=== PATIENT | female | born 1985 | race Hispanic/Latino ===

== ENCOUNTER 2025-05-19 18:20 | Emergency (ER) | payer OTHER ==
--- OUTSIDE RECORDS SUMMARY | 2025-05-19 18:26 | XMS REPORT | Continuity of Care Document ---
Author Name Unknown Address [address] [facility] [place] [address] [facility] Address [address] [facility] [address] [place] [address] Care Team Providers Care Skiver Machine Name Role Phone None, None Primary Care Physician Pushpa Rodriguez Attending Clinician UnavailDeborah Willoughby Attending Clinician Unavailable Anish Zhao Attending Clinician Unavailable Genetic Counselor, Center Attending Clinic janneth Unavailable Jayleen Markham RN Attending Clinician Unavailab Jessica Howell Attending Clinician Unavail able Lab, Adc Fam Pob I Attending Clinician Unavailab Chadd Du Attending Clinician CHADD PABLO Attending Clinician Unavailable Pushpa Rodriguez Admitting Clinician Unavailnoy reich Physician, No Primary or Family Admitting Clinic janneth Unavailable Payers Payer Name Policy Type Policy Number Effective Date Expirati on Date Source OPEN ACCESS [employer] EPO [id number] 2021 00:00:00 Problems Condition Name Condition Details Condition Category Status Onset Date Resolution Date Last Treatment Date Treating Clinician Comments Source Seasonal allergic rhinitis Seasonal allergic rhinitis Problem Active [facility] Abnormal heart rhythm Abnormal heart rhythm Problem Active [facility] Sciatica, left side Sciatica, left side Problem Active [facility] Anxiety Anxiety Problem Active [facility] Hypertensi on Hypertensi on Problem Active [facility] Swelling Swelling Problem Active [facility] Sinus problem Sinus problem Problem Active [facility] Cough Cough Diagnosis Active [facility] Sore throat Sore throat Diagnosis Active [facility] Allergies, Adverse Reactions, Alerts Allergy Name Allergy Type Status Severity Reaction(s) Onset Date Inactive Date Treating Clinician Comments Source No Known Allergie s DA Active U 2022-09 0 00:00: 00 [facility] No Known Allergie s DA Active U 12-28 00:00: 00 [facility] NO KNOWN ALLERGIE S Drug Class Active [facility] Social History Social Habit Start Date Stop Date Quantity Comments Source ASSERTION 2022-11-24 00:00:00 [facility] Exposure to SARS-CoV-2 (event) 2023-01-29 00:00:00 2023-02-08 10:43:00 Not sure [facility] Alcohol Comment 2023-02-03 00:00:00 2023-02-03 00:00:00 Socially before [facility] Tobacco use and exposure 2023-02-03 00:00:00 2023-02-03 00:00:00 Smokeless tobacco non-user [facility] Alcohol intake 2023-02-03 00:00:00 2023-02-03 00:00:00 Ex-drinker (finding) [facility] Sex Assigned At 1985 00:00:00 1985 00:00:00 [facility] Smoking Status Start Date Stop Date Source Unknown if ever smoked [facility] Never smoked tobacco [facility] th Medications Ordered Medication Name Filled Medication Name Start Date Stop Date Current Medication? Ordering Clinician Indication Dosage Frequency Signature (SIG) Comments Components Source Vit-Fe Fumarate-FA ( PO) 02-03 13:32: 52 Yes Take by mouth. [facility] NuvaRing NuvaRing Yes Angela Sevilla 1 ring [facility] Medrol Medrol Yes Angela Sevilla as directed with food [facility] Etonogestre l-Ethinyl Estradiol Etonogestre l-Ethinyl Estradiol Yes Angela Sevilla not defined [facility] Sertraline HCl Sertraline HCl Yes Angela Sevilla 1.5 tablets [facility] Fluconazole Fluconazole Yes Angela Sevilla not defined [facility] Amoxicillin Amoxicillin Yes Angela Sevilla not defined [facility] PredniSONE PredniSONE Yes Angela Sevilla not defined [facility] Vital Signs Vital Name Observation Time Observation Value Comments S ource Body height 2023-02-03 18:13:00 [facility] Body weight 2023-02-03 18:13:00 [facility].04 [facility] BMI 2023-02-03 18:13:00 27.44 kg/m2 [facility] Procedures Procedure Date / Time Performed Performing Clinicia n Source [id number] 2023-07-14 00:00:00 [facility] [id number] 2023-07-14 00:00:00 [facility]07 [facility] Encounters Start Date/Time End Date/Time Encounter Type Admission Type Attending Clinicians Care Facility Care Department Encounter ID Source 2023-07-28 12:00:00 Inpatient Pushpa Anaya [facility] OBOP [id number] [facility] 2023-04-26 07:26:07 Outpatient [facility] [id number] [facility] 2023-03-24 12:02:57 Outpatient [facility] [id number] [facility] 2023-02-09 09:50:31 Outpatient [facility] [id number] [facility] 2023-02-08 10:40:34 Outpatient [facility] [id number] [facility] 2023-02-05 12:24:40 Outpatient [facility] [id number] [facility] 2023-02-03 11:03:54 Outpatient [facility] [id number] [facility] 2023-02-02 17:00:52 Outpatient [facility] [id number] [facility] 2021-10-22 11:16:45 [facility]patient [facility] [id number] [facility] 2023-07-15 09:30:00 2023-07-27 00:00:00 Outpatient Pushpa Anaya [facility] [id number] [facility] 2023-07-22 13:00:00 2023-07-22 13:00:00 Outpatient [facility] [id number] [facility] 2023-07-14 02:37:00 2023-07-18 20:09:00 Inpatient Pushpa Cabrera [facility] [id number] 50 [facility] 2023-07-15 13:00:00 2023-07-15 13:00:00 Outpatient [facility] [id number] [facility] 2023-07-08 13:00:00 2023-07-08 13:46:36 Outpatient [facility] [id number] [facility] 2023-06-30 10:45:00 2023-06-30 12:02:46 Outpatient [facility] [id number] [facility] 2023-06-08 21:17:00 2023-06-09 00:35:00 Emergency EM Anish Zhao [facility] ELIF [id number] 82 [facility] 2023-06-02 11:30:00 2023-06-02 11:57:49 Outpatient [facility] [id number] [facility] 2023-05-05 14:30:00 2023-05-05 14:30:00 Outpatient [facility] [id number] [facility] 2023-03-31 15:00:00 2023-03-31 16:07:04 Outpatient [facility] [id number] [facility] 2023-03-31 13:00:00 2023-03-31 15:23:44 Outpatient [facility] [id number] [facility] 2023-03-09 10:30:00 2023-03-09 10:30:00 Outpatient [facility] [id number] [facility] 2023-02-09 11:00:00 2023-02-09 11:56:40 Education Genetic Counselor, [facility] [address] [id number] [facility] 2023-02-09 10:00:00 2023-02-09 11:56:27 Outpatient [facility] [id number] [facility] 2023-02-03 00:00:00 2023-02-03 00:00:00 Nurse Only Jayleen Markham Karold [facility] [address] [facility] [id number] [facility] 2023-02-01 11:06:00 2023-02-01 14:30:00 Emergency EM Jessica Heredia [facility] [id number] 71 [facility] 2021-05-09 17:20:00 2021-05-09 17:20:00 Outpatient [facility] [id number] [facility] 2021-05-09 11:48:18 2021-05-09 12:08:18 Laboratory Only Lab, Adc Fam Pob Chadd Morel [id number] [facility] 2021-05-09 11:40:00 2021-05-09 11:40:00 Outpatient CHADD WARD [facility] [id number] [facility] 2019-12-28 15:20:00 2019-12-28 15:20:00 Outpatient [facility] [id number] [facility] 2019-12-28 14:03:00 2019-12-28 14:03:00 [facility]patient [facility] [id number] [facility] 2018-02-24 09:15:00 2018-02-24 09:15:00 Outpatient [facility] [id number] [facility] Results Test Description Test Time Test Comments Results Result Co mments Source CAPILLARY BLOOD [id number] 11:42:00* Test Item Value Reference Range Interpretation Comme nts CAPILLARY BLOOD GAS PH (test code = PHC) 7.349 7.35-7.45 L CAPILLARY BLOOD GAS PCO2 (te st code = PCO2C) 36.0 mmHg CAPILLARY BLOOD GAS PO2 (ryan t code = PO2C) 23.8 mmHg CBG HCO3 (test code = HCO3C) 19.4 meq/L CBG BASE EXCESS (test code = BEC) -5.5 CAPILLARY BLOOD GAS TYPE (te st code = TYPEC) CBLA CAPILLARY BLOOD GAS FIO2 (te st code = FIO2C) 21.0 % CAPILLARY BLOOD GAS DEL (ryan t code = DELC) RA CBC W/AUTO [id number] 07:00:00* Test Item Value Reference Range Interpretation Comme nts WHITE BLOOD CELL (test code = WBC) 18.6 K/mm3 6.5-12.3 H Results verified by repeat analysis RED BLOOD CELL (test code = RBC) 3.65 M/mm3 3.51-4.69 N HEMOGLOBIN (test code = HGB) 8.7 g/dL 10.1-13.8 L Results verified by repeat analysis HEMATOCRIT (test code = HCT) 27.4 % 32.5-41.8 L Results verified by repeat analysis MEAN CELL VOLUME (test code = MCV) 75.1 fL 84.6-96.6 L MEAN CELL HGB (test code = MCH) 23.8 pg 27.3-33.9 L MEAN CELL HGB CONCETRATION (test code = MCHC) 31.8 gm/dL 32.0-34.2 L RED CELL DISTRIBUTION WIDTH (test code = RDW) 22.5 % 12.2-16.3 H PLATELET COUNT (test code = PLT) 191 K/mm3 134-363 N MEAN PLATELET VOLUME (test code = MPV) 10.5 fL 9.2-12.7 N NEUTROPHIL % (test code = NT%) 74.4 % 57.9-77.3 N LYMPHOCYTE % (test code = LY%) 13.9 % 14.5-29.7 L MONOCYTE % (test code = MO%) 8.5 % 3.6-10.2 N EOSINOPHIL % (test code = EO%) 0.2 % 0.0-3.0 N BASOPHIL % (test code = BA%) 0.2 % 0.1-0.9 N NEUTROPHIL # (test code = NT#) 13.9 K/mm3 LYMPHOCYTE # (test code = LY#) 2.6 K/mm3 MONOCYTE # (test code = MO#) 1.6 K/mm3 EOSINOPHIL # (test code = EO#) 0.03 K/mm3 BASOPHIL # (test code = BA#) 0.0 K/mm3 RBC MORPHOLOGY REQUIRED (test code = RBCM) ABNORMAL NORMAL MACRO 1+MICRO 1+ANISO 1+ PLATELET MORPHOLOGY REQUIRED (test code = PLTMR) NORMAL NORMAL AG HEPATITIS B [id number] 04:30:00* Test Item Value Reference Range Interpretation Comme nts AG HEPATITIS B SURFACE (test code = HBSAG) NONREACTIVE NONREACTIVE AB HEPATITIS C [id number] 04:30:00* Test Item Value Reference Range Interpretation Comme nts AB HEPATITIS C (test code = HCVAB) NONREACTIVE NONREACTIVE SIGNAL TO CUTOFF (test code = CUTOFF) 0.11 <0.80 N AB [id number] 04:30:00* Test Item Value Reference Range Interpretation Comme nts AB TREPONEMA (test code = TREPAB) NONREACTIVE NONREACTIVE AB HIV 1 04:30:00* Test Item Value Reference Range Interpretation Comme nts AB HIV 1 2 (test code = [id number]) NONREACTIVE NONREACTIVE Done by [employer] 4th Gen HIV Ag/Ab Combo Screen CBC W/AUTO [id number] 03:53:00* Test Item Value Reference Range Interpretation Comme nts WHITE BLOOD CELL (test code = WBC) 12.6 K/mm3 6.5-12.3 H RED BLOOD CELL (test code = RBC) 5.10 M/mm3 3.51-4.69 H HEMOGLOBIN (test code = HGB) 11.8 g/dL 10.1-13.8 N HEMATOCRIT (test code = HCT) 37.2 % 32.5-41.8 N MEAN CELL VOLUME (test code = MCV) 72.9 fL 84.6-96.6 L MEAN CELL HGB (test code = MCH) 23.1 pg 27.3-33.9 L MEAN CELL HGB CONCETRATION (test code = MCHC) 31.7 gm/dL 32.0-34.2 L RED CELL DISTRIBUTION WIDTH (test code = RDW) 22.5 % 12.2-16.3 H PLATELET COUNT (test code = PLT) 215 K/mm3 134-363 N MEAN PLATELET VOLUME (test code = MPV) 10.6 fL 9.2-12.7 N NEUTROPHIL % (test code = NT%) 75.8 % 57.9-77.3 N LYMPHOCYTE % (test code = LY%) 15.3 % 14.5-29.7 N MONOCYTE % (test code = MO%) 6.1 % 3.6-10.2 N EOSINOPHIL % (test code = EO%) 0.7 % 0.0-3.0 N BASOPHIL % (test code = BA%) 0.4 % 0.1-0.9 N NEUTROPHIL # (test code = NT#) 9.6 K/mm3 LYMPHOCYTE # (test code = LY#) 1.9 K/mm3 MONOCYTE # (test code = MO#) 0.8 K/mm3 EOSINOPHIL # (test code = EO#) 0.09 K/mm3 BASOPHIL # (test code = BA#) 0.1 K/mm3 RBC MORPHOLOGY REQUIRED (test code = RBCM) ABNORMAL NORMAL MICRO 1+ANISO 1+ PLATELET MORPHOLOGY REQUIRED (test code = PLTMR) NORMAL NORMAL COMPREHENSIVE METABOLIC [id number] 03:43:00* Test Item Value Reference Range Interpretation Comme nts SODIUM (test code = NA) 138 mEq/L 135-145 N POTASSIUM (test code = K) 3.7 mEq/L 3.5-5.0 N CHLORIDE (test code = CL) 105 mEq/L 100-115 N CARBON DIOXIDE (test code = CO2) 18 mEq/L 22-31 L ANION GAP (test code = GAP) 18.80 10-20 N GLUCOSE (test code = GLU) 74 mg/dL 65-110 N BLOOD UREA NITROGEN (test code = BUN) 5 mg/dL 7-18 L CREATININE (test code = CREAT) 0.6 mg/dL 0.5-1.0 N TOTAL PROTEIN (test code = PROT) 5.9 gm/dL 6.3-8.2 L ALBUMIN (test code = ALB) 2.5 gm/dL 3.4-4.8 L CALCIUM (test code = CA) 8.4 mg/dL 8.4-10.2 N BILIRUBIN TOTAL (test code = BILT) 1.0 mg/dL 0.2-1.0 N SGOT/AST (test code = AST) 17 units/L 15-37 N SGPT/ALT (test code = ALT) 8 units/L 12-78 L ALKALINE PHOSPHATASE TOTAL (test code = ALKP) 232 units/L 46-116 H GLOMERULAR FILTRATION RATE (test code = GFR) 118 ml/min >60 N The Glomerular Filtration Rate is a calculated parameterbased on serum Creatinine, patient age and sex. GFR valuesless than 60 mL/min/1.73 square meters are indicative ofChronic Kidney Disease. Values less than 15 mL/min/1.73square meters indicate Kidney failure. The calculation forGFR is based on the CKD-EPI (202) calculation. This formulais race indifferent and is the recommended formula for GFRby the National Kidney Foundation for Adults.The GFR will not calculate if the sex is unknown or if thepatient's age is <18 years. RUPTURE OF [id number] 02:37:00* Test Item Value Reference Range Interpretation Comme nts RUPTURE OF MEMBRANES (test c ode = ROM) RUPTURED - US PRG 1ST [facility] [id number] 00:00:00 [facility] 1985 Sex: F Patient Name: WARD SUMNER Unit No: [id number] EXAMS: CPT CODE: [id number] US PRG 1ST TRI [place] ADD [id number] PROCEDURE INFORMATION: Exam: US First Trimester, Transabdominal Exam date and time: 02/01/2023 11:50 AM Age: 37 years old Clinical indication: Screening exam; Other: Vag bleed; ;Prior surgery; Surgery date: 6+ months; Surgery type: Csection; Additional info: Vb; 12 weeks gestation TECHNIQUE: Imaging protocol: Real-time transabdominal obstetrical ultrasound of the maternal pelvis and a first trimester , less than 14 weeks 0 days, with image documentation. COMPARISON: US PREG AFTER 1ST TRI 09/14/2017 8:10 AM FINDINGS: Gestation: Dichorionic diamniotic twin . Embryonic/ heart rate A: 1 70 BPM. Embryonic/ heart rate B: 174 BPM. Placenta: Moderat e Small subchorionic bleed. Amniotic fluid: Amniotic fluid is normal for gestational age. BIOMETRY:Gestational age (AUA) A: Estimated gestational age is 12 weeks and 6 days, by CRL measurments. Gestational age (AUA) B: Estimated gestational age is 12 weeks and 4 days, by CRL measurments. MATERNAL:Uterus: The uterus is anteverted and measures 22 x 5.9 x 15.0 cm. Uterus is unremarkable. Cervix: Unremarkable. Right adnexa: Not seen and likely obscured by bowel gas. Left adnexa: Not seen and likely obscured by bowel gas. Intraperitoneal space: No intraperitoneal free fluid. Notes: If there is further concern recommend serial hCG and short interval followup, IMPRESSION: 1. Live Dichorionic diam niotic twin . 2. Estimated gestational age is 12 weeks and 6 days for fetus A and 12 weeksand 4 days for fetus B. 3. Moderate subchorionic hemorrhage. at 1251 Reported and signed by: Kehinde Morales [facility] NAME: JARRETT SUMNERE Radiology Department PHYS: Jessica Stark [address] : 1985 AGE: 37 SEX: F [place], [place] [address] LOC: LesleyHAYDEE PHONE #: [phone] EXAM DATE: 02/01/2023 STATUS: REG ER FAX #: [phone] RAD NO: Page 1 Signed Report (CONTINUED) Patient Name: WARD SUMNER Unit No: [id number] EXAMS: CPT CODE: [id number] US PRG 1ST TRI EA [id number] (Continued) CC: Jessica Heredia MD Technologist: Cristina Thompson RDMS Probe: Trnscrbd D/ (1251) GCD.CPS Orig Print D/T: S: 02/01/2023 (1251) [facility] NAME: WARD SUMNER Radiology Department PHYS: PETJOSIE. - Jessica Heredia [address] : 1985 AGE: 37 SEX: F [place] [address] LOC: LesleyERS PHONE #: [phone] EXAM DATE: 02/01/2023 STATUS: REG ER FAX #: [phone] RAD NO: Page 2 Signed Report Patient Name: WARD SUMNER Unit No: [id number] EXAMS: CPT CODE: [id number] US PRG 1ST TRI EA ADD 10400 (Continued) [facility] NAME: WARD SUMNER Radiology Department PHYS: [email or web address].Gilda - Jessica Heredia [address] : 1985 AGE: 37 SEX: F [place] [address] LOC: LesleyERS PHONE #: [phone] EXAM DATE: 02/01/2023 STATUS: REG ER FAX #: [phone] RAD NO: Page 3 Signed Report- US PREG EVAL 1ST [id number] 00:00:00 [facility] 1985 Sex: F Patient Name: WARD SUMNER Unit No: [id number] EXAMS: CPT CODE: [id number] US PREG EVAL 1ST [id number] PROCEDURE INFORMATION: Exam: US First Trimester, Transabdominal Exam date and time:02/01/2023 11:50 AM Age: 37 years old Clinical indication: Screening exam; Other: Vag bleed; ; Prior surgery; Surgery date: 6+ months; Surgery type: Csection; Additional info: Vb; 12 weeks gestation TECHNIQUE: Imaging protocol: Real-time transabdominal obstetrical ultrasound of the maternal pelvis and a first trimester , less than 14 weeks 0 days, with image documentation. COMPARISON: US PREG AFTER 1ST TRI 09/14/2017 8:10 AM FINDINGS: Gestation: Dichorionic diamniotic twin . Embryonic/ heart rate A: 1 70 BPM. Embryonic/ heart rate B: 174 BPM. Placenta: Moderat e Small subchorionic bleed. Amniotic fluid: Amniotic fluid is normal for gestational age. BIOMETRY:Gestational age (AUA) A: Estimated gestational age is 12 weeks and 6 days, by CRL measurments. Gestational age (AUA) B: Estimated gestational age is 12 weeks and 4 days, by CRL measurments. MATERNAL:Uterus: The uterus is anteverted and measures 22 x 5.9 x 15.0 cm. Uterus is unremarkable. Cervix: Unremarkable. Right adnexa: Not seen and likely obscured by bowel gas. Left adnexa: Not seen and likely obscured by bowel gas. Intraperitoneal space: No intraperitoneal free fluid. Notes: If there is further concern recommend serial hCG and short interval followup, IMPRESSION: 1. Live Dichorionic diam niotic twin . 2. Estimated gestational age is 12 weeks and 6 days for fetus A and 12 weeksand 4 days for fetus B. 3. Moderate subchorionic hemorrhage. at 1251 Reported and signed by: Kehinde Morales [facility] NAME: WARD SUMNER Radiology Department PHYS: [email or web address] - YanJessica galvez [address] : 1985 AGE: 37 SEX: F [place] [id number] LOC: HELADIO PHONE #: [phone] EXAM DATE: 02/01/2023 STATUS: REG ER FAX #: [phone] RAD NO: Page 1 Signed Report (CONTINUED) Patient Name: WARD SUMNER Unit No: [id number] EXAMS: CPT CODE: [id number] US PREG EVAL 1ST TRIMTR 76117 (Continued) CC: Jessica Heredia MD Technologist: Cristina Thompson RDMS Probe: Trnscrbd D/ (1251) GCD.CPS Orig Print D/T: S: 02/01/2023 (1251) [facility] NAME: WARD SUMNER Radiology Department PHYS: PETCA.Gilda - YanJessica galvez [address] : 1985 AGE: 37 SEX: F [place] [address] LOC: HELADIO PHONE #: [phone] EXAM DATE: 02/01/2023 STATUS: REG ER FAX #: [phone] RAD NO: Page 2 Signed Report Patient Name: WARD SUMNER Unit No: [id number] EXAMS: CPT CODE: [id number] US PREG EVAL 1ST TRIMTR 04505 (Continued) [facility] NAME: WARD SUMNER Radiology Department PHYS: [email or web address] - Yan,Jessica D [address] : 1985 AGE: 37 SEX: F [place] [address] LOC: HELADIO PHONE #: [phone] EXAM DATE: 02/01/2023 STATUS: REG ER FAX #: [phone] RAD NO: Page 3 Signed Report Notes Date/Time Note Provider Source 2023-07-18 10:33:00 [facility] OB Disch REPORT#:[id number] REPORT STATUS: Signed REPORT INITIALIZATION DATE:07/18/23 TIME: 1032 PATIENT: WARD SUMNER UNIT #: [id number] ROOM/BED: 2049-A : [birth year] AGE: 37 SEX: F ATTEND: Pushpa Rodriguez MD ADM AUTHOR: Pushpa Rodriguez MD REPT SERVICE DT/TIME: 07/18/23 103 * ALL edits or amendments must be made on the electronic/computer document * Subjective Subjective Admission EGA: Weeks: 35 Days: 1 Status/day: post operative (day #4) Patient reports: Patient reports: Yes: normal lochia, pain management effective, tolerating po well, voiding well, voiding without pain, tolerating ambulation, flatus. No: complaints. Objective General VS: Vital Signs Date Temp Pulse Resp B/P B/P Mean Pulse Ox FiO2 07/18 98.1 68 17 133/85 101.2 98 Last Documented: Result Date Time Pulse Ox 98 07/18 002 B/P 133/85 07/18 27 B/P Mean 101.2 07/18 27 Temp 98.1 07/18 27 Pulse 68 07/18 27 Resp 17 07/18 27 PATIENT WEIGHT: Weight (lb): Weight (oz): Weight (kg): 81.801779 Physical Exam Neuro: Exam: alert, oriented x3, normal speech Abdomen: post gravid, soft, no abnormal tenderness, no guarding, no rebound tenderness Incision site: dry, no inflammation, not approximated Uterus: involution appropriate, non-tender Fundus: firm, below the umbilicus Lochia: normal Lower extremities: Edema: trace Discharge Summary General Assessment: nml progress, acute blood loss anemia, nutrit. defiency anemia Date of admission: Date of admission: 07/14/23 Admission diagnosis: vdryq-wda-adiq, multiple gestation, XMHE-igu-hgoo Hospital course: repeat LTCS in labor, nml postop/postpart care Procedures: repeat CS delivery Discharge condition: stable Discharge to: Home/Self Care Discharge diagnosis: previous uterine incision, pre-term labor, pre-term PROM, multiple gestation Discharge management: less than 30 mins Nursing data: The data set between the solid lines has been imported from nursing documentation. Any exceptions have been noted below under Provider comments. Delivery date A: 07/14/23 Delivery time A: 0500 Birthweight (gm) infant A: 2970 Feeding preference: Gender A: Female 1 minute A: 5 minutes infant A: 10 minutes infant A: Provider comments on imported nursing data: [] Infant B (add'l data): The data set between the solid lines has been imported from nursing documentation. Any exceptions have been noted below under Provider comments. Delivery date B: 07/14/23 Delivery time B: 0503 Birthweight (gm) B: 2690 Gender infant B: Female 1 minute infant B: 5 minutes B: 10 minutes B: Provider comments on imported nursing data: [] Plan: routine care, discharge today Discharge Instructions Instructions: routine instr sheet given Diet: Regular Activity: As Tolerated, No Driving, No [place] for 6 Wks, No Lifting >20lbs, No Strenuous Activity Additional discharge routines: Attending Follow-Up, Wound/Dressing Care Wound/dressing care: Keep wound clean and dry Contraception discussed: abstinence for 4-6 weeks, will discuss at PP visit Discharge meds: Stop taking the following medications: diphenhydrAMINE (BENADRYL) 25 MG TAB ASPIRIN (ASPIRIN) 81 MG TAB.CHEW 81 MILLIGRAM ORAL DAILY. Continue taking these medications: PNV WITH FE FUMARATE/FA () 1 EACH TAB 1 TABLET ORAL DAILY. CHOLECALCIFEROL (VITAMIN D3) (VITAMIN D3) 1,000 UNITS CAP 1,000 UNITS ORAL DAILY. Start taking the following new medications: IBUPROFEN (MOTRIN) 600 MG TAB 600 MILLIGRAM ORAL EVERY 6 HOURS NEEDED. as needed for PAIN SCALE 1-3 ( USE 1ST) Qty = 30 No Refills oxyCODONE (oxyCODONE) 5 MG TAB 5 MILLIGRAM ORAL EVERY 4 HOURS NEEDED. as needed for PAIN SCALE 4-6 Qty = 30 No Refills Prescriptions: e-prescribe Rx drug database reviewed: yes Add'l Follow-up Appointments Attending Physician: Attending Physician: Pushpa Rodriguez MD Attending physician follow up timeframe: In 2-3 weeks at 1036 RPT #:[id number] END OF REPORT [facility] 2023-07-17 11:03:00 [facility] ([facility]) OB Postpart Progr Note REPORT#:[id number] REPORT STATUS: Signed REPORT INITIALIZATION DATE:07/17/23 TIME: 1103 PATIENT: WARD SUMNER #: [id number] ROOM/BED: [address] : [address] AGE: 37 SEX: F ATTEND: Pushpa Rodriguez MD ADM AUTHOR: Archana Ramirez DO REPT SERVICE DT/TIME: 07/17/23 1103 * ALL edits or amendments must be made on the electronic/computer document * Subjective Subjective Admission EGA: Weeks: 35 Days: 1 Status/day: post (day3), post operative Comments: Doing well, no complaints. Passing gas, having some bloating, denies n/v. Pain well controlled. Voiding freely. One baby still in NICU, planning for possible discharge from NICU today or tomorrow. Objective Nursing Documentation Review Nursing data: The data set between the solid lines has been imported from nursing documentation. Any exceptions have been noted below under Provider comments. Feeding preference: Post hemorrhage risk score: HighRisk Provider comments on imported nursing data: [] General VS: Vital Signs Date Temp Pulse Resp B/P B/P Mean Pulse Ox FiO2 07/16 97.9 86 18 85.8 Last Documented: Result Date Time B/P 07/16 B/P Mean 85.8 07/16 2328 Temp 97.9 07/16 2328 Pulse 86 07/16 2328 Resp 18 07/16 2328 Pulse Ox 96 07/15 1614 PATIENT WEIGHT: Weight (lb): Weight (oz): Weight (kg): 81.660009 Physical Exam Neuro: Exam: alert, oriented x3, normal speech Abdomen: soft, no abnormal tenderness, no guarding, no rebound tenderness Incision site: dry, no inflammation, not approximated Uterus: firm, involution appropriate, non-tender Fundus: firm, at the umbilicus, non-tender Lochia: normal Diagnosis, Assessment Plan Diagnosis, Assessment Plan Assessment: nml progress, acute blood loss anemia, nutrit. defiency anemia Plan: routine care, discharge tomorrow at 1104 RPT #:[id number] END OF REPORT [facility] 2023-07-16 16:43:00 [facility] ([facility]) OB Postpart Progr Note REPORT#:[id number] REPORT STATUS: Signed REPORT INITIALIZATION DATE:07/16/23 TIME: 1642 PATIENT: WARD SUMNER UNIT #: [id number] ROOM/BED: : 85 AGE: 37 SEX: F ATTEND: Pushpa Rodriguez MD ADM AUTHOR: Pushpa Rodriguez MD REPT SERVICE DT/TIME: 07/16/23 164 * ALL edits or amendments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 Patient )( Sudden in Onset? No Review of Systems ROS Statements All systems rev neg except as marked. Free Text ROS Notes Free Text ROS Notes Focused Review of Systems Constitutional Denies: Chills, Fever, Lethargy. GI Denies: Abdominal pain, Diarrhea, Nausea, Vomiting. Female Reports: , Vaginal bleeding - abnl. Musculoskeletal Denies: Back pain, Extremity pain. Endocrine Denies: Polyuria, Weight loss. Skin Denies: Diaphoresis, Rash. Neurologic Denies: Change LOC, Dizziness, Focal weakness, Headache, Numbness, Slurred speech. Additional Review of Systems Respiratory Denies: Pleuritic pain, Shortness of breath. Cardiovascular Denies: Chest pain, Dyspnea on exertion, Palpitations. Past Medical History - Adult Stated Complaint 12 WKS VAG BLEEDING/CRAMPING THIS AM Allergies Coded Allergies: No Known Allergies (12/28/17) Home Medications Active Scripts NIFEdipine XL (PROCARDIA XL) 30 MG PO DAILY NIFEdipine XL (PROCARDIA XL) 30 MG PO DAILY #30 TAB Ref 3 Prov: Michelle Lloyd* 01/04/18 HYDROcodone/APAP (HYDROcodone/APAP 5/325) 1 TAB PO Q3H PRN PRN PAIN 4-6 (USE 1ST ) IF NO IV HYDROcodone/APAP (HYDROcodone/APAP 5/325) 1 TAB PO Q3H PRN PRN PAIN 4-6 ( USE 1ST) IF NO IV #30 TAB Prov: Michelle Lloyd* 01/04/18 IBUPROFEN (MOTRIN) 600 MG PO Q6H PRN PRN PAIN SCALE 1-3 (USE 1ST) IBUPROFEN (MOTRIN) 600 MG PO Q6H PRN PRN PAIN SCALE 1-3 (USE 1ST) #30 TAB Prov: Michelle Lloyd* 01/04/18 Reported Medications PNV WITH FE FUMARATE/FA () 1 TAB PO DAILY CHOLECALCIFEROL (VITAMIN D3) (VITAMIN D3) 1,000 UNITS PO DAILY diphenhydrAMINE (BENADRYL) Physical Exam Vital Signs Vital Signs First Documented: Result Date Time Pulse Ox 96 02/01 1124 B/P 123/83 02/01 1124 B/P Mean 96 02/01 1124 O2 Delivery Room air 02/01 1124 Temp 98.7 02/01 1124 Pulse 95 / 1124 Resp 16 02/01 1124 Last Documented: Result Date Time Pulse Ox 96 02/01 1124 B/P 123/83 02/01 1124 B/P Mean 96 02/01 1124 O2 Delivery Room air 02/01 1124 Temp 98.7 / 1124 Pulse 95 / 1124 Resp 16 02/01 1124 Review of Vital Signs Reviewed, Vital signs normal Focused PE General/Const General/Const Awake, Alert, Well appearing Resp/Chest Respiratory/Chest Breath sounds NL, Breath sounds = bilat, No respiratory distress, No rales, No rhonchi, No wheezing Cardiovascular Cardiovascular Heart rate NL, Regular rhythm, Heart sounds NL, Peripheral circulation NL Abdomen/GI Abdomen/GI Soft, Non-tender, No guarding, No rebound MS Back Back Inspection NL, Non-tender, No CVA tenderness Skin Skin Color NL, No rash, Warm, Dry, Turgor NL Genitourinary Female Genitourinary External genitalia NL, No bleeding, No discharge, No cervical motion tend, Os closed, No adnexal mass, No adnexal tenderness, No uterine enlargement, No uterine mass, No lesions or rash Interpretation Diagnostics Lab Results Interpretation Results Recent Impressions: ULTRASOUND - US PRG 1ST TRI EA ADD 02/02 1200 Report Impression - Status: SIGNED Entered: 02/01/2023 1251 IMPRESSION: 1. Live Dichorionic diamniotic twin . 2. Estimated gestational age is 12 weeks and 6 days for fetus A and 12 weeks and 4 days for fetus B. 3. Moderate subchorionic hemorrhage. Impression By: Kehinde Landeros ULTRASOUND - US PREG EVAL 1ST TRIMTR 02/01 1200 Report Impression - Status: SIGNED Entered: 02/01/2023 1251 IMPRESSION: 1. Live Dichorionic diamniotic twin . 2. Estimated gestational age is 12 weeks and 6 days for fetus A and 12 weeks and 4 days for fetus B. 3. Moderate subchorionic hemorrhage. Impression By: Kehinde Landeros Lab Imaging Statement Laboratory radiographic studies reviewed and considered in the medical decision-making. Re-Evaluation MDM Free Text MDM Notes Free Text MDM Notes A/P: 37yo @ 11w6d WF with PMH as above p/w VB and pelvic cramping 1. Labs 2. TVUS 3. UA 4. Meds 5. Re-assess ADDENDUM Time: 1415 TVUS shows stable twin gestation with moderate subchorionic hemorrhage. Case discussed with Dr. Rodriguez (OB); recommends discharge home with outpatient follow-up. Pt re-assessed; symptoms improved. Results of work-up d/w Pt; voiced understanding. Ok for DC home with PCP follow-up Patient Discharge Departure Vital Signs/Condition Vital Signs First Documented: Result Date Time Pulse Ox 96 / 1124 B/P 123/83 / 1124 B/P Mean 96 / 1124 O2 Delivery Room air 02/01 1124 Temp 98.7 / 1124 Pulse 95 / 1124 Resp 16 02/01 1124 Last Documented: Result Date Time Pulse Ox 96 / 1124 B/P 123/83 / 1124 B/P Mean 96 / 1124 O2 Delivery Room air / 1124 Temp 98.7 02/01 1124 Pulse 95 02/01 1124 Resp 16 02/01 1124 All vital signs available at the time of this entry have been reviewed. Clinical Impression Clinical Impression Primary Impression: Subchorionic hemorrhage Secondary Impressions: 11 weeks gestation of , Vaginal bleeding in Disposition Decision Discharge )( Discharged to Home Yes )( Time 1415 )( Date 02/01/23 Discharge/Care Plan Counseled Regarding Diagnosis, Imaging studies, Need for follow-up, When to return to ED Patient Instructions Bleeding During Early Additional Instructions See handout on Subchorionic Hemorrhage Referrals Provider Referral: Pushpa Rodriguez MD Address: [address] [place] [address] [address] [place] [address] Discharge Note I have spoken with the patient and/or caregivers. I have explained the patient's condition, diagnoses and treatment plan based on the information available to me at this time. I have answered the patient's and/or caregiver's questions and addressed any concerns. The patient and/or caregivers have as good an understanding of the patient's diagnosis, condition and treatment plan as can be expected at this point. The vital signs have been stable. The patient's condition is stable and appropriate for discharge from the emergency department. The patient will pursue further outpatient evaluation with the primary care physician or other designated or consulting physician as outlined in the discharge instructions. The patient and/or caregivers are agreeable to this plan of care and follow-up instructions have been explained in detail. The patient and/or caregivers have received these instructions in written format and have expressed an understanding of the discharge instructions. The patient and/or caregivers are aware that any significant change in condition or worsening of symptoms should prompt an immediate return to this or the closest emergency department or a call to 911. at 1646 RPT #:[id number] END OF REPORT [facility]
[2025-05-19] MEDS ORDERED: METOCLOPRAMIDE 10 MG/2mL INJ ONE (18:48)
[2025-05-19] MEDS ORDERED: DIPHENHYDRAMINE 50 MG/ML VIAL ONE (18:48)
[2025-05-19] MEDS ORDERED: NA CHLORIDE 0.9% 1,000 ML ONE (18:49)
[2025-05-19 18:58] LABS: Absolute Lymphocytes (CBC) 2.9 K/uL (0.7-4.9); Hematocrit 48.4 % (36.0-45.0); Hemoglobin 16.4 g/dL (12.0-15.0); MCH 29.0 pg (27.0-35.0); MCHC 34.0 g/dL (32.0-36.0); MCV 85.4 fL (80-100); MPV 8.6 fL (7.6-11.3); Nucleated RBC Absolute Count 0.0 (0-0); Nucleated Red Blood Cells % 0.1 % (0-0); RBC Red Blood Cell Count 5.66 M/uL (3.86-4.86); White Blood Count 11.90 thou/uL (4.3-10.9)
[2025-05-19] MEDS ORDERED: KETOROLAC 30 MG/ML INJ ONE (19:17)
[2025-05-19 19:19] LABS: ALT/SGPT 16.0 U/L (13-56); AST/SGOT 12.0 U/L (15-37); Albumin 4.0 g/dL (3.4-5.0); Albumin/Globulin Ratio 1.1 (1.1-1.8); Alkaline Phosphatase 88.0 U/L (45-117); Anion Gap 11.6 mEq/L (5.0-15.0); BUN Blood Urea Nitrogen 10.0 mg/dL (7-18); Globulin 3.8 g/dL (2.3-3.5); Glucose Level 106.0 mg/dL (74-106); Potassium 3.6 mEq/L (3.5-5.1)
--- NOTE | 2025-05-19 20:51 | ER ---
Nurse's Notes [facility] Name: Zulma Rebolledo Age: 39 yrs Sex: Female : 1985 Arrival Date: 05/19/2025 Time: 18:20 Bed 5 Private MD: Diagnosis: Migraine without aura, not intractable Presentation: 05/19 18:32 Chief complaint: Patient states: thinks she has a migraine, feels shaky, pain in iw shoulders , nausea, +hx of migraines, vomited twice. Coronavirus screen: At this time, the client does not indicate any symptoms associated with coronavirus-19. Ebola Screen: No symptoms or risks identified at this time. Initial Sepsis Screen: Does the patient meet any 2 criteria? No. Patient's initial sepsis screen is negative. Does the patient have a suspected source of infection?. Risk Assessment: Do you want to hurt yourself or someone else? Patient reports no desire to harm self or others. Onset of symptoms was May 19, 2025. 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 - Infectious Disease History:: Denies. - Social history:: Smoking status: Patient denies any tobacco usage or history of. Screenin:54 [facility] ED Fall Risk Assessment (Adult) History of falling in the last 3 months, dd2 including since admission No falls in past 3 months (0 pts) Confusion or Disorientation No (0 pts) Intoxicated or Sedated No (0 pts) Impaired Gait No (0 pts) Mobility Assist Device Used No (0 pt) Altered Elimination No (0 pt) Score/Fall Risk Level 0 - 2 = Low Risk Oriented to surroundings, Maintained a safe environment, Educated pt \T\ family on fall prevention, incl call for assistance when getting out of bed, Assessed \T\ reinforced patient's understanding of fall precautions, Hourly rounding (assess needs \T\ fall precautionary measures) done. Abuse screen: Denies threats or abuse. Denies injuries from another. Nutritional screening: No deficits noted. Tuberculosis screening: No symptoms or risk factors identified. Assessment: 19:33 Reassessment: Patient and/or family updated on plan of care and expected duration. Pain kb4 level reassessed. Patient is alert, oriented x 3, equal unlabored respirations, skin warm/dry/pink. Patient states feeling better. Patient states symptoms have improved. Pain: Complains of pain in head. Neuro: Level of Consciousness is awake, alert, obeys commands, Oriented to person, place, time, situation, Reports headache in entire. Cardiovascular: Heart tones S1 S2 present Patient's skin is warm and dry. Pulses are all present. are 2+ in right radial artery and left radial artery Rhythm is regular. Respiratory: Airway is patent Respiratory effort is even, unlabored, Respiratory pattern is regular, symmetrical, Breath sounds are clear bilaterally. GI: Abdomen is flat, non-distended. : No signs and/or symptoms were reported regarding the genitourinary system. EENT: No signs and/or symptoms were reported regarding the EENT system. Derm: No signs and/or symptoms reported regarding the dermatologic system. Musculoskeletal: No signs and/or symptoms reported regarding the musculoskeletal system. 21:56 Reassessment: Patient appears in no apparent distress at this time. No changes from kb4 previously documented assessment. Patient and/or family updated on plan of care and expected duration. Pain level reassessed. Patient is alert, oriented x 3, equal unlabored respirations, skin warm/dry/pink. Vital Signs: 18:34 BP 125 / 101; Pulse 117; Resp 16; Temp 96.9(TE); Pulse Ox 100% on R/A; Weight 67.13 kg; iw Height 5 ft. 2 in. ; Pain 5/10; 19:32 BP 132 / 91; Pulse 107; Resp 18; Pulse Ox 96% on R/A; kb4 20:00 BP 131 / 94; Pulse 92; Resp 18; Pulse Ox 98% on R/A; kb4 20:30 BP 131 / 99; Pulse 88; Resp 18; Pulse Ox 98% on R/A; kb4 21:00 BP 127 / 89; Pulse 84; Resp 18; Pulse Ox 98% on R/A; kb4 21:30 BP 127 / 86; Pulse 85; Resp 18; Pulse Ox 98% on R/A; kb4 18:34 Body Mass Index 27.07 (67.13 kg, 157.48 cm) iw 18:34 Pain Scale: Adult iw [place] Coma Score: 18:54 Eye Response: spontaneous(4). Motor Response: obeys commands(6). Verbal Response: dd2 oriented(5). Total: 15. ED Course: 18:23 Patient arrived in ED. ts1 18:27 Janae Martinez [facility]-C [facility] kb 18:27 Cheko Kuo MD is Attending Physician. kb 18:33 Triage completed. iw 18:34 Arm band placed on. iw 18:43 Lorna Geiger, RN is Primary Nurse. ph 18:54 Patient has correct armband on for positive identification. Bed in low position. Call dd2 light in reach. Side rails up X 1. Client placed on continuous cardiac and pulse oximetry monitoring. NIBP monitoring applied. Door closed. Noise minimized. Warm blanket given. Pillow given. Verbal reassurance given. 18:54 Test, Urine Sent. dd2 18:54 CMP Sent. dd2 18:54 CBC with Diff Sent. dd2 18:54 No provider procedures requiring assistance completed. Initial lab(s) drawn, by me, dd2 sent to lab. Urine collected: clean catch specimen, cloudy. Inserted saline lock: 20 gauge in right antecubital area, using aseptic technique. Blood collected. Flushed with 10 mL NS. Patient maintains SpO2 saturation greater than 95% on room air. 21:58 Provided Education on: discharge follow up. al5 21:58 IV discontinued, intact, bleeding controlled, No redness/swelling at site. Pressure al5 dressing applied. Administered Medications: 18:58 Drug: NS 0.9% IV 1000 ml IV at 1000 ml once; to be given as a bolus over 60 minutes ph Route: IV; Rate: 1000 ml; Site: right antecubital; 21:57 Follow up: Response: No adverse reaction; IV Status: Completed infusion; IV Intake: al5 1000ml 18:58 Drug: diphenhydrAMINE IVP 12.5 mg IVP once Route: IVP; Site: right antecubital; ph 21:58 Follow up: Response: No adverse reaction; Pain is decreased al5 18:58 Drug: Decadron - Dexamethasone IVP 10 mg IVP once Route: IVP; Site: right antecubital; ph 21:58 Follow up: Response: No adverse reaction; Pain is decreased al5 18:59 Drug: metoCLOPramide IVP 10 mg IVP once; over 1 to 2 minutes Route: IVP; Site: right ph antecubital; 21:58 Follow up: Response: No adverse reaction; Pain is decreased al5 19:22 Drug: Ketorolac IVP 15 mg IVP once Route: IVP; Site: right antecubital; kb4 19:32 Follow up: Response: No adverse reaction kb4 Medication: 18:54 VIS not applicable for this client. dd2 Intake: 21:57 IV: 1000ml; Total: 1000ml. al5 Outcome: 20:51 Discharge ordered by MD. kb 21:59 Discharged to home ambulatory, al5 21:59 Condition: good 21:59 Discharge instructions given to patient, Instructed on discharge instructions, follow up and referral plans. Demonstrated understanding of instructions, follow-up care, 22:15 Patient left the ED. kb4 Signatures: Janae Martinez, LOAN EXPEDITOR-C LOAN EXPEDITOR-Ckb Corazon Mason, RN KISHAN iw Lorna Geiger RN RN ph Marleny Hudson, NIECY PAS ts1 Yuridia Woodward RN RN al5 VIVIAN MENJIVAR RN RN dd2 Alejandra Richmond RN RN kb4 Corrections: (The following items were deleted from the chart) 18:35 18:32 Chief complaint: Patient states: thinks she has a migraine, feels shaky, pain in iw shoulders , nausea, +hx of migraines iw 18:37 18:34 Pulse 117bpm; Resp 16bpm; Pulse Ox 100% RA; iw iw 22:14 22:14 General: Appears kb4 kb4
--- NOTE | 2025-05-19 22:15 | EDPHYS ---
Physician Documentation [facility] Name: Zulma Rebolledo Age: 39 yrs Sex: Female : 1985 Arrival Date: 05/19/2025 Time: 18:20 Bed 5 Private MD: ED Physician Cheko Kuo HPI: 05/19 21:34 This 39 yrs old Female presents to ER via Ambulatory with complaints of kb Nausea, Headache. 21:34 Pt is a 39 year old female who presents for nausea, vomiting, headache that started kb today around 1300. States she has had similar migraines in the past, but has never had associated nausea and vomiting. Reports increased stress lately. Denies diarrhea, abd pain, fever, cough, congestion. 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 - Infectious Disease History:: Denies. - Social history:: Smoking status: Patient denies any tobacco usage or history of. ROS: 21:34 Constitutional: As per HPI kb Exam: 21:34 Constitutional: This is a well developed, well nourished patient who is awake, alert, kb and in no acute distress. Head/Face: Normocephalic, atraumatic. Eyes: Pupils equal round and reactive to light, extra-ocular motions intact. Lids and lashes normal. Conjunctiva and sclera are non-icteric and not injected. Cornea within normal limits. Periorbital areas with no swelling, redness, or edema. ENT: Moist Mucous membranes Cardiovascular: Regular rate Respiratory: Respirations even and unlabored. No increased work of breathing. Talking in full sentences Abdomen/GI: Soft, non-tender. No distention Skin: Warm, dry with normal turgor. Normal color. MS/ Extremity: Pulses equal, no cyanosis. Neurovascular intact. Full, normal range of motion. Neuro: Awake and alert, GCS 15, oriented to person, place, time, and situation. Vital Signs: 18:34 BP 125 / 101; Pulse 117; Resp 16; Temp 96.9(TE); Pulse Ox 100% on R/A; Weight 67.13 kg; iw Height 5 ft. 2 in. ; Pain 5/10; 19:32 BP 132 / 91; Pulse 107; Resp 18; Pulse Ox 96% on R/A; kb4 20:00 BP 131 / 94; Pulse 92; Resp 18; Pulse Ox 98% on R/A; kb4 20:30 BP 131 / 99; Pulse 88; Resp 18; Pulse Ox 98% on R/A; kb4 21:00 BP 127 / 89; Pulse 84; Resp 18; Pulse Ox 98% on R/A; kb4 21:30 BP 127 / 86; Pulse 85; Resp 18; Pulse Ox 98% on R/A; kb4 18:34 Body Mass Index 27.07 (67.13 kg, 157.48 cm) iw 18:34 Pain Scale: Adult iw [place] Coma Score: 18:54 Eye Response: spontaneous(4). Motor Response: obeys commands(6). Verbal Response: dd2 oriented(5). Total: 15. MDM: 18:27 Medical Screening Exam initiated kb 21:35 Differential diagnosis: tension headache, dehydration, migraine. Data reviewed: vital kb signs, nurses notes. Test considered but Not performed: CT: ct head considered but pt has no neuro deficits, headache is similar to previous. Historians other than the Patient: Spouse/Significant Other: spouse. Counseling: I had a detailed discussion with the patient and/or guardian regarding the historical points, exam findings, and any diagnostic results supporting the discharge/admit diagnosis, lab results, the need for outpatient follow up, a family practitioner, to return to the emergency department if symptoms worsen or persist or if there are any questions or concerns that arise at home. 05/19 18:37 Order name: CBC with Diff; Complete Time: 19:07 kb 05/19 18:37 Order name: CMP; Complete Time: 19:20 kb 05/19 18:37 Order name: Test, Urine; Complete Time: 19:07 kb 05/19 18:37 Order name: IV Start; Complete Time: 18:54 kb Administered Medications: 18:58 Drug: NS 0.9% IV 1000 ml IV at 1000 ml once; to be given as a bolus over 60 minutes ph Route: IV; Rate: 1000 ml; Site: right antecubital; 21:57 Follow up: Response: No adverse reaction; IV Status: Completed infusion; IV Intake: al5 1000ml 18:58 Drug: diphenhydrAMINE IVP 12.5 mg IVP once Route: IVP; Site: right antecubital; ph 21:58 Follow up: Response: No adverse reaction; Pain is decreased al5 18:58 Drug: Decadron - Dexamethasone IVP 10 mg IVP once Route: IVP; Site: right antecubital; ph 21:58 Follow up: Response: No adverse reaction; Pain is decreased al5 18:59 Drug: metoCLOPramide IVP 10 mg IVP once; over 1 to 2 minutes Route: IVP; Site: right ph antecubital; 21:58 Follow up: Response: No adverse reaction; Pain is decreased al5 19:22 Drug: Ketorolac IVP 15 mg IVP once Route: IVP; Site: right antecubital; kb4 19:32 Follow up: Response: No adverse reaction kb4 Disposition: 21:36 Chart complete. kb 05/20 06:58 Co-signature as Attending Physician, Cheko Kuo MD I reviewed the patient's care rn provided by the Advanced Practice Provider and agree with the diagnosis and treatment plan. Disposition Summary: 05/19/25 20:51 Discharge Ordered Notes: Location: Home kb Condition: Stable kb Diagnosis - Migraine without aura, not intractable kb Followup: kb - With: Emergency Department - When: As needed - Reason: Worsening of condition Followup: kb - With: Private Physician - When: 2 - 3 days - Reason: Recheck today's complaints, Continuance of care, Re-evaluation by your physician Discharge Instructions: - Discharge Summary Sheet kb - Migraine Headache, [id number] kb Forms: - Medication Reconciliation Form kb - Antibiotic Education kb - Prescription Opioid Use kb - Patient Portal Instructions kb - Leadership Thank You Letter kb Signatures: Dispatcher [employer] EDMS Janae Martinez, SAW STRAIGHTENER-C SAW STRAIGHTENER-Ckb Corazon Mason ph D, RN RN iw Nieto, Roman, MD MD rn Hall, Patricia, RN RNAVIS, DIANA, RN RN dd2 Alejandra Richmond RN RN kb4 Yuridia Woodward RN al5 Corrections: (The following items were deleted from the chart) 05/19 18:38 18:38 CBC+H.LAB.BRZ ordered. EDMS EDMS 18:38 18:38 COMPREHENSIVE METABOLIC PANEL+C.LAB.BRZ ordered. EDMS EDMS 18:38 18:38 Test, Urine+UC.LAB.BRZ ordered. EDMS EDMS
[2025-05-19 22:19] VITALS: TEMP 96.9
[2025-05-19 22:22] VITALS: O2SAT 98
[2025-05-19 22:27] VITALS: BP 127/86
== END 2025-05-19 22:15 | disposition home or self-care (01) ==
LOC: ER 18:20
DX: G43.009 Migraine without aura, not intractable, without status migrainosus (principal)
CPT/HCPCS: 96361; 85025; 36415; 81025; 80053; 96375; 96374; 99284; J2765; J1200; J1100; J7030